=== PATIENT | male | born 1970 | race Caucasian/White ===

== ENCOUNTER 2019-05-29 08:25 | Observation (INO) ==
--- NOTE | 2019-05-29 05:57 | History & Physical Report ---
Date of Encounter: 05/29/19 Time of Encounter: 05:57 24 Hour HP Update - Instructions Instructions: If the History and Physical is less than 30 days old and was completed prior to A.M. admission and or procedure and has NOT been updated on calendar day of procedure please complete this update prior to performing procedure. - Update Patient reports changes in Medical Condition: No Changes in examination, assessment, or condition: No Changes in Medication: No Preop tests/diagnostics Reviewed: Yes Surgery Remains Indicated: Yes Consent for Planned Operative Procedure(s) Verified: Yes - Pre-Operative Checklist Preoperative Checklist Indicated: Yes Prophylactic Antibiotic Ordered: No Home Medications Include Beta Costa: Yes
[~2019-05-29 08:25] MED LIST: Simethicone 40 MG/0.6 ML MLS IR ONE
--- NOTE | 2019-05-29 08:55 | Anesthesia Evaluation PreOp ---
Date of Encounter: 05/29/19 Time of Encounter: 08:54 - Past History Planned Operation: EGD Cardiac History: Hyperlipidemia [employer] History: Denies Any Significant HX Other Medical History: GERD Anesthesia History: No Prior Anesthetic Complications, Past Anesthesia (hernia x 2) Alcohol Use: none Drug use: none Medications and Allergies Clindamycin [Cleocin] 150 mg PO Q6HR #7 capsule 07/15/18 [Rx] Ibuprofen [Motrin] 800 mg PO Q8HR #30 tablet 07/15/18 [Rx] OxyCODONE Immed Rel [Roxicodone 5 MG] 5 mg PO Q4HR PRN 5 Days #20 tablet 07/15/18 [Rx] Allergy/AdvReac Type Severity Reaction Status Date / Time No Known Allergies Allergy Verified 02/02/18 02:45 - Meds/Allergy Pre-op Review Medications Reviewed: Yes Allergies Reviewed: Yes Beta Blockers on Current Med List: No Anesthesia Results - Imaging EKG: report reviewed Anesthesia Exam Vital Signs/O2 Sat/Glucose, Most Recent Temp Pulse Resp BP Pulse Ox 98.1 F 76 20 133/97 98 05/29/19 08:38 05/29/19 08:38 05/29/19 08:38 05/29/19 08:38 05/29/19 08:38 Weight: 86 kg NPO (# of Hours): > 8 hr - HEENT Pupil (Motor): Pupils equal Mallampati: II Teeth: Normal - [employer] LOC: Oriented [employer] Motor: Normal RUE, Normal LUE, Normal RLE, Normal LLE, Normal Face [employer] Sensory: Normal: RUE, LUE, RLE, LLE, Face - Cardiac Rhythm: Regular Murmur: None - Pulmonary Breath Sounds: bilateral Clear Respiratory Effort: Symmetrical Anesthesia Assess/Plan ASA Score: 2 Level of consciousness: Cooperative, Oriented Anesthetic Plan: MAC Monitoring Plan: Standard Monitors Recovery Plan: PACU Anes Supervising Prov Stmt: plan is for admission post procedure
[2019-05-29] MEDS ORDERED: 0.9 % Sodium Chloride 1,000 ML IVC SCH (09:00)
--- NOTE | 2019-05-29 10:01 | Anesthesia Evaluation Post Op ---
Date of Encounter: 05/29/19 Time of Encounter: 10:00 - Vital Signs Vital Signs: Vital Signs/O2 Sat/Glucose, Most Recent Temp Pulse Resp BP Pulse Ox 98.0 F 67 16 106/80 95 05/29/19 09:40 05/29/19 09:40 05/29/19 09:40 05/29/19 09:40 05/29/19 09:40 - Lungs Lungs: Clear Ascult./Percussion - Airway Airway: Non-obstructed - Cardiovascular Regular Rate - Mental Status Mental Status: Alert & Oriented, Answers Appropriately - Pain Pain Scale: 0 - Nausea Vomiting Nausea Vomiting: Not Present - Hydration Hydration: Tolerates oral liquids - Discharge PostOp Status: Transfer Patient to floor
[2019-05-29] MEDS ORDERED: Isovue-370 500 ML BOTTLE IVP ONE (11:28)
--- NOTE | 2019-05-29 11:39 | Gastroenterology Consult Note ---
Date of Encounter: 05/29/19 Time of Encounter: 10:00 - Assessment and plan (1) Esophageal ulcer without bleeding Current Visit: Yes Status: Acute Assessment and plan: The patient is status post EGD, continue PPI. We will also add Carafate. Clear liquids today. Will keep for 24 hour observation. (2) Abnormality of esophagus Current Visit: Yes Status: Acute Assessment and plan: Will check CT abdomen with IV and oral contrast. - Time Spent With Patient Total time spent is greater than 50% in coordination of care (as documented) at patient's floor/unit and/or counseling patient: GI History of Present Illness - Data of Consult Patient: known to practice within the last 3 years Consult date: 05/29/19 Requesting Physician: Archie Garza MD - Consult Narrative History of present illness: Mr. Farrell is a 49 year old male with past medical history of hypertension, hyperlipidemia and borderline diabetes. Home medications include PPI only. He was admitted today following an EGD which showed gastric and esophageal ulcers, large hiatal hernia and extrinsic compression of the esophagus. EGD was completed due to continued symptoms of severe GERD while on PPI. He also had occasional dysphagia. He reports occasional cough following meals. He denies any nausea or vomiting, diarrhea or constipation. He denies any shortness of breath, or syncope. He denies any melena or hematochezia. Past Med Surg Social Fam HX - Past Medical History Medical history: GERD, renal disease Additional medical history: Stomach ulcer Psychiatric history: no psych history - Past Surgical History Surgical History: herniorrhaphy, other Additional surgical history: hernia x 2, left shoulder sx - Social History Smoking Status: Former smoker Smokeless Tobacco Status: No Alcohol use: occasionally Drug use: none - Family History Mother Living Status: Father Living Status: Review of Systems: GI: as per [place] [facility]: denies fever,or chills EYES: denies yellow discoloration ENT: difficulty swallowing CARDIO: denies chest pain, palpitations RESP: No Shortness of breath with exertion : denies change in color of urine NEURO: denies any weakness HEME: Denies any bruising MS: denies joint pain, joint swelling or back pain. DERM: denies rash or itching PSYCH: Denies history of anxiety or depression - Constitutional Vitals: Temp Pulse Resp BP Pulse Ox 98.0 F 67 16 106/80 95 07/22/19 09:40 05/29/19 09:40 05/29/19 09:40 05/29/19 09:40 05/29/19 09:40 Exam: CONSTITUTIONAL:alert, no acute distress.HEAD:normocephalic.EYES:no jaundice.NECK:no obvious swelling.HEART:regular rate and rhythm, no murmurs.LUNGS:bilateral good air entry.ABDOMEN:non distended, soft, non tender, no masses palpable, no organomegaly, lower abdominal scar well healed.RECTAL EXAM:Deferred.EXTREMITIES:no clubbing, cyanosis or abdirizak ma.SKIN:no stigmata of chronic liver disease.NEUROLOGIC:no obvious focal defect. Consult Discharge Plan - Plan Referrals: Luis Miguel Santana DO [Primary Care Provider] -
[2019-05-29 13:01] LABS: Basophils # 0.1 K/mcL (0.0-0.2); Basophils % 0.7 %; Eosinophils # 0.4 K/mcL (0.0-0.6); Eosinophils % 5.2 %; Hematocrit 46.2 % (37.5-50.1); Hemoglobin 15.4 g/dL (12.9-16.9); Immature Granulocytes % 0.5 % (0-4); Lymphocytes # 2.1 K/mcL (0.6-4.6); Lymphocytes % 28.3 %; Mean Corpuscular HGB Conc 33.3 g/dL (31.6-35.5); Mean Corpuscular Hemoglobin 29.3 pg (28.0-33.3); Mean Platelet Volume 9.4 fL (9.4-12.4); Monocytes # 0.7 K/mcL (0.0-1.3); Monocytes % 9.1 %; Neutrophils # 4.2 K/mcL (1.6-8.9); Platelet Count 278 K/mcL (140-400); Red Blood Count 5.25 M/mcL (4.19-5.50); Red Cell Distribution Width 12.2 % (11.5-14.5); Segmented Neutrophils % 56.2 %; White Blood Count 7.6 K/mcL (4.3-11.1)
[2019-05-29] MEDS ORDERED: Lidocaine 2% Syringe 100 MG/5 ML IV ONE (15:31)
[2019-05-29] MEDS ORDERED: *HR* Propofol 200 MG/20 ML VIAL IVP ONE (15:31)
[2019-05-29] MEDS: 0.9 % Sodium Chloride 1,000 ML IVC SCH (16:19)
[2019-05-30] MEDS: 0.9 % Sodium Chloride 1,000 ML IVC SCH (01:32)
[2019-05-30 07:15] VITALS: BP 133/85
[2019-05-30] MEDS ORDERED: Isovue-370 500 ML BOTTLE IVP ONE (08:07)
[2019-05-30 09:42] LABS: eGFR For African Americans > 60 (> 60); eGFR For Non-African Americans > 60 (> 60)
[2019-05-30] MEDS ORDERED: Isovue-370 500 ML BOTTLE PO ONE (10:28)
--- NOTE | 2019-05-30 10:33 | Gastroenterology Progress Note ---
<DaniellaKimmie Flower - Last Filed: 05/30/19 10:31> Date of Encounter: 05/30/19 Time of Encounter: 09:45 - Assessment and plan (1) Esophageal ulcer without bleeding Status: Acute Assessment and plan: The patient is status post EGD, continue PPI. We will also add Carafate. No bleeding noted, CBC was normal yesterday will discharge home with follow up in the office. (2) Abnormality of esophagus Status: Acute Assessment and plan: CT done, awaiting results will follow in the office. - Time Spent With Patient Total time spent is greater than 50% in coordination of care (as documented) at patient's floor/unit and/or counseling patient: - Subjective Interval history: Pt awake in bed. He denies any abdominal pain, nausea, vomiting, diarrhea or rectal bleeding. - Constitutional Vitals: Temp Pulse Resp BP Pulse Ox 97.8 F 58 16 133/85 94 05/30/19 07:14 05/30/19 07:14 05/30/19 07:14 05/30/19 07:14 05/30/19 07:14 Exam: CONSTITUTIONAL:alert, no acute distress.HEAD:normocephalic.EYES:no jaundice .NECK:no obvious swelling.HEART:regular rate and rhythm, no murmurs.LUNGS:bilateral good air entry.ABDOMEN:non distended, soft, non tander, no masses pulpable, no organomegaly.RECTAL EXAM:De ferred.EXTREMITIES:no clubbing, cyanosis or edema.SKIN:no stigmata of chronic liver disease.NEUROLOGIC:no obvious focal defect. Results - Labs CBC & Chem 7: 05/29/19 12:11 05/30/19 09:04 - VTE Reasons for not Prescribing Prophylaxis: Medical contraindication Consult Discharge Plan - Plan Instructions: Peptic Ulcer (DC), Gastritis (DC) Referrals: Luis Miguel Santana DO [Primary Care Provider] - 06/06/19 1:00 pm <Archie Garza - Last Filed: 06/05/19 05:13> Date of Encounter: 06/05/19 - Time Spent With Patient Total time spent is greater than 50% in coordination of care (as documented) at patient's floor/unit and/or counseling patient: 25 - 35 minutes - Constitutional Vitals: Temp Pulse Resp BP Pulse Ox 97.8 F 58 16 133/85 94 05/30/19 07:14 05/30/19 07:14 05/30/19 07:14 05/30/19 07:14 05/30/19 07:14 Results - Labs CBC & Chem 7: 05/29/19 12:11 05/30/19 09:04 - Attending Attestation Mr Farrell is admitted after EGD. EGD suggested extrinsic compression of stomach as well as esophageal ulceration. Plan CT and then make further recommendations brittany ch could be done outpatient. I have personally performed a face to face evaluation on this patient. I have reviewed and agree with the care plan. History and Exam by me shows:
== END 2019-05-30 12:41 | disposition home or self-care (01) ==
LOC: ENDPAV 08:25 → 3BNU 08:25 → ENDPAV 10:31 → 3BNU 11:54
PROVIDERS: ADMIT Internal Medicine Gastroenterology; ATTEND Internal Medicine Gastroenterology
PROC: ENDOEBX (2019-05-29 09:25)